=== PATIENT | female | born 1995 | race Two or more races ===

== ENCOUNTER 2019-12-13 16:20 | Emergency (ER) | payer SELFPAY ==
[~2019-12-13] VITALS: Ht 157.5 cm; Wt 62.5 kg
[2019-12-13 16:30] VITALS: BP 106/69
--- NOTE | 2019-12-13 16:52 | NUR ---
[employer]: PT TO ROOM FROM LOBBY
== END 2019-12-13 18:06 | disposition home or self-care (01) ==
LOC: ED 17:55
DX: S93.492A Sprain of other ligament of left ankle, initial encounter (principal); X50.0XXA Overexertion from strenuous movement or load, initial encounter; Y93.79 Activity, other specified sports and athletics; Y92.328 Other athletic field as the place of occurrence of the external cause; Y99.8 Other external cause status
CPT/HCPCS: 99283